=== PATIENT | female | born 1995 | race Caucasian/White ===

== ENCOUNTER 2017-12-15 12:27 | Emergency (ER) | payer OTHER, BC ==
[~2017-12-15] VITALS: Ht 165.1 cm; Wt 84.7 kg
[~2017-12-15 12:27] MED LIST: CEPH500C25 OR; CLX20 PO; SULF800T23 PO
[2017-12-15 12:29] VITALS: TEMP 36.8; Ht 165.1 cm; Wt 84.7 kg
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
[2017-12-15 13:49] VITALS: BP 113/66; PULSE 72; O2SAT 100
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
== END 2017-12-15 14:18 | disposition home or self-care (01) ==
LOC: C.EDB 12:28 → C.EDD 14:18
DX: M54.5 Low back pain (principal); O26.891 Other specified pregnancy related conditions, first trimester; O28.3 Abnormal ultrasonic finding on antenatal screening of mother; Z3A.12 12 weeks gestation of pregnancy; W03.XXXA Other fall on same level due to collision with another person, initial encounter; Y92.129 Unspecified place in nursing home as the place of occurrence of the external cause; Y99.0 Civilian activity done for income or pay